=== PATIENT | male | born 1950 | race Caucasian/White ===

== ENCOUNTER 2024-04-28 11:02 | Inpatient (IN) | payer OTHER, SELFPAY ==
[2024-04-25 09:48] VITALS: BMI 34.9
[2024-04-28] VITALS (12 sets, daily range): BP systolic 133–170; BP diastolic 84–101; PULSE 72–115; RESP 12–20; TEMP 36.1–37.1; O2SAT 86–96; BMI 35.6
[2024-04-28] MEDS: ACETAMINOPHEN 325 MG TABLET 975 MG PO (12:11)
[2024-04-28] MEDS: LACTATED RINGERS 1,000 ML 42 ML IV (12:13)
--- NOTE | 2024-04-28 13:06 | PM.PREOP ---
Pre-operative Note Interval Note History & Physical reviewed/Exam performed by Physician: Yes Changes to H&P: No
[2024-04-28] MEDS: CEFAZOLIN 2 GM/100 ML PREMIX 100 ML IV ×2 (13:41→20:49)
[2024-04-28] MEDS: BUPIVACAINE 0.25% (PF) 60 ML, EPINEPHrine 0.15 MG INJ (13:54)
--- NOTE | 2024-04-28 14:02 | SUR.OPER ---
Prone on spine table, head in foam head support, padded chest and pelvic supports, gel pad at knees, lower legs supported by pillows; nipples, genitalia and toes free of pressure, arms secured on foam padded arm boards at <90 degrees abduction. Tape over blanket at thigh secured to table.
--- NOTE | 2024-04-28 15:58 | DI.RAD.S_ITS ---
PROCEDURE: XR LUMBAR SPINE 2-3V INDICATIONS: L4-5 TLIF TECHNIQUE: 3 views of the lumbar spine were acquired. COMPARISON: None. Findings and impression: Intraoperative images were obtained for L4-L5 posterior fusion hardware placement with interbody spacer. Please see operative note for full details. Dictated by: Robin Zaman M.D. on 04/28/2024 at 16:28 Approved by: Robin Zaman M.D. on 04/28/2024 at 16:28
--- NOTE | 2024-04-28 16:05 | P.OP_ITS ---
Operative Date/Time/Diagnoses Date of procedure: 04/28/24 Time of procedure: 13:00 Pre-op diagnosis: 1. 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 Lumbar spondylosis with radiculopathy Post-op diagnosis: same Procedure & Clinicians Procedure: 1. L4-5 Postero-lateral and posterior interbody fusion 2. L4-5 interbody cage placement. 3. L4-5 decompressive laminectomy with bilateral facetecomies 4. L4-5 Posterior non-segmental instrumentation 5. L3-4 right hemilaminectomy 6. [place] of bone marrow from iliac crest 7. Utilization of microsurgical technique and operating microscope Same procedure as scheduled: Yes Indications: Patient has been having chronic back pain and worsening lumbar radiculopathy and symptoms of neurogenic claudication. Patient was found to have severe L3-4 L4-5 spinal stenosis both centrally and then in the neural foramen correlating with his symptoms. Patient failed multiple conservative management with worsening pain weakness and numbness in his lower extremity. Patient has been having difficulty performing activity of daily living. After discussing risks benefits of treatment options, patient elected proceed with surgery. Surgeon: Shawn Dick Group Counselor: Shani Villegas Click Yes if Unassisted: No Anesthesia Type: General Operative Notes Closure Type: primary Specimen(s): none sent Prosthetic devices, grafts, tissues, transplants, or devices: Globus CREO MIS screws, RIse cage Estimated Blood Loss (mL): 100 Blood products transfused: none Procedure in detail: Patient was seen in the preoperative area. Risks and benefits of the surgery was discussed with the patient. Informed consent was obtained from the patient and placed in the chart. Surgical site was marked. Patient was taken to the operative room. General anesthesia was administered. Prophylactic antibiotic was given to the patient less than 30 min before the incision was made. Patient was placed into a prone position on the Julian table. Patient's back was then prepped and draped in the sterile fashion. Time-out was performed at this time. After patient was prepped and draped, patient's PSIS was palpated and marked bilaterally. Small 1 cm incision was made over the PSIS for placement of the reference probes. Two trocar was placed into the PSIS 1 on each side. The reference probe was attached to the trocar of the reference apparatus. At this time the C-arm imaging was used to confirm AP and lateral of L4-5 vertebrae and merged the C-arm imaging using the AetherPal robotic navigation system with the CT of the lumbar spine. After successful merging was completed and confirmed, skin marker was used to pravin out the skin incision using the AetherPal robotic arm. Bilateral incision was made at this time. Pre templated trajectory was used and guided using the AetherPal robotic navigation system for bilateral L4-5 pedicle screw placement. This was done by using the robotic arm to guide the high-speed bur to make a cortical entry point. Next a drill was placed also using the robotic arm and guided using the navigation system drilling partially through bilateral L4 and L5 pedicles. Next L4-5 pedicle screws it was pre templated and measured was placed onto the power national flatbed truck driver and inserted into the pedicles bilaterally. After all 4 screws were placed C-arm imaging was taken of both AP and lateral to confirm the placement. Excellent placement of the screws were confirmed and a matched precisely with the pre planned screw placement using the navigation system. MARs retractor was inserted using Prime Gridivation guidence. Globus MARS retractors was placed inside the incision and docked onto the L4 lamina. Using microsurgical technique and operating microscope, a L4 laminectomy and L4-5 facetectomy was performed using a Kerrison rongeur. Patient was found have severe central stenosis, lateral recess and neural foramen stenosis which was fully decompressed after the laminectomy facetectomy. The laminectomy and facetectomy was performed in order to decompress patient's cauda equina as well as the nerve roots exiting at the L4-5 level. More than 75% of the facets were removed during the process of decompression rendering L4-5 level grossly unstable and required a fusion procedure at the same time. The disc space at L4-5 was identified, and a total diskectomy was performed at L4-5 level. The endplates were decorticated using a rasp and shaver. The total diskectomy and decortication was performed at L4-5 level in order to to accomplish a L4-5 fusion. The local bone from the laminectomy and facetectomy was saved for local bone grafting. After the total diskectomy and decortication was completed, Viacel bone graft material was combined with local bone that was harvested earlier. At this time, a separate skin is incision was made over the iliac crest. A Jamshidi needle was inserted into the iliac crest through a separate skin incision. 5 cc of bone marrow aspiration was obtained through the separate skin incision using a Jamshidi needle from the iliac crest. The bone marrow aspiration was combined with local bone and the Viacel bone grafting material. The bone grafting material was placed into the L4-5 interbody space along with a expandable cage. The cage was expanded to its maximum height using the torque limiting screwdriver. The disc preparation as well as the cage insertion were also performed under navigation guidance. After the cage was placed, AP and lateral C-arm imaging was taken to confirm placement of the cage and excellent position was confirmed. GLobus MARs retractors were then redirected over the L3-4 interval from the right side, using microsurgical technique and operating microscope, a L3-4 hemilaminectomy was performed using Kerrison rongeur and drill. The facet was undercut using a Kerrison rongeur to further decompress the lateral recess. Globus MARS retractor was inserted and docked onto the L4-5 posterolateral gutter on the right side. Using the power drill, posterior-lateral decortication was performed at L5-S1 level until bleeding cortical bone was identified. The remaining bone grafting material was placed into the L4-5 posterior lateral gutter he order to accomplish posterolateral fusion at the L5- S1 level. At this time the tulips were attached to the L4-5 pedicle screw shanks. After measuring the length of the rods, they were inserted into the tulips of the pedicle screws and locked in place using locking caps and torque limiting screwdriver bilaterally. Total 4 caps and 2 titanium rods was used in order to complete the posterior instrumentation construct. After all the hardware was placed, and confirmed with AP and lateral C-arm imaging, the wound was then irrigated with sterile normal saline and packed with Ray-Antonia gauze for 3 min to accomplish hemostasis. After the gauze was removed the deep fascia was closed with #1 Vicryl suture. The subcutaneous layer was closed with 2-0 Vicryl. The skin was closed with skin mode. Patient tolerated the procedure well. There were no complications. Neuro monitoring system was used to monitor patient's neurologic status throughout entire procedure. There was no disturbance of the neural monitoring signals throughout the case. The Operation could not have been safely performed without compromising the technical result or length of the procedure, without the assistance of a skilled surgical services manager. The surgical services manager was medically necessary for proper positioning, retraction and manipulation of instruments, proper exposure, surgical preparation, and manipulation of tissue. Complications: none Post-operative Condition: stable Disposition: PACU Plan for aftercare: Admit to inpatient hospital
[2024-04-28] MEDS: LACTATED RINGERS 1,000 ML 125 ML IV (17:45)
[2024-04-28] MEDS: ACETAMINOPHEN 325 MG TABLET 650 MG PO (17:45)
[2024-04-28] MEDS: OXYCODONE IR 10 MG TABLET PO ×2 (17:45→22:19)
--- NOTE | 2024-04-28 18:24 | PC.NURSE ---
Patient is alert and oriented x4, his dressing is cdi to lower back. Given 1 oxycodone with some tylenol 650mg, which has been helpful for his discomfort. LR at 125 infusing and patient is eating his dinner without any nausea.
[2024-04-28] MEDS: ATORVASTATIN 20 MG TABLET 40 MG PO (20:49)
[2024-04-28] MEDS: GABAPENTIN 300 MG CAPSULE PO (20:49)
[2024-04-28] MEDS: DOCUSATE 100 MG CAPSULE PO (20:49)
[2024-04-28] MEDS: methocarbamoL 500 MG TABLET PO (20:49)
[2024-04-28] MEDS: SENNOSIDES 8.6 MG TABLET 17.2 MG PO (20:49)
[2024-04-29] VITALS (8 sets, daily range): BP systolic 115–140; BP diastolic 72–87; PULSE 90–110; RESP 18–20; TEMP 36.4–37.9; O2SAT 89–96
[2024-04-29] MEDS: OXYCODONE IR 10 MG TABLET PO ×4 (02:33→19:25)
[2024-04-29] MEDS: LACTATED RINGERS 1,000 ML 125 ML IV (02:34)
[2024-04-29] MEDS: ACETAMINOPHEN 325 MG TABLET 650 MG PO ×4 (02:34→20:14)
[2024-04-29] MEDS: CEFAZOLIN 2 GM/100 ML PREMIX 100 ML IV (04:20)
[2024-04-29] MEDS: TRIAMTERENE/HCTZ 37.5/25 CAPSULE 0.5 CAP PO (08:39)
[2024-04-29] MEDS: methocarbamoL 500 MG TABLET PO ×3 (08:40→20:17)
[2024-04-29] MEDS: DOCUSATE 100 MG CAPSULE PO ×2 (08:40→20:17)
[2024-04-29] MEDS: GABAPENTIN 300 MG CAPSULE PO ×3 (08:40→20:17)
[2024-04-29] MEDS: lisinopriL 10 MG TABLET PO (08:40)
[2024-04-29] MEDS: MAGNESIUM HYDROXIDE 30 ML UDC PO (08:41)
[2024-04-29] MEDS: polyethylene glycoL 3350 17 GM POWD.PACK PO (08:41)
[2024-04-29] MEDS: CITALOPRAM 10 MG TABLET 20 MG PO (08:41)
[2024-04-29] MEDS: HYDROMORPHONE 1 MG INJ 0.5 MG IV ×2 (09:05→15:29)
--- NOTE | 2024-04-29 09:05 | PT.IIE ---
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) S/P total right hip arthroplasty (06/2004) Medical History (Last Updated 04/25/24 @ 10:25 by Megan Garcia, RN) Adopted Depression Difficult intubation HLD (hyperlipidemia) HTN (hypertension) Prostate cancer Thyroid disease Physical Therapy Inpatient Evaluation/Re-Eval M1 PT/OT-IP Prior Functional Status Start: 04/29/24 11:32 Freq: NEEDED Status: Active Protocol: Document 04/29/24 09:05 AB (Rec: 04/29/24 11:50 AB [id number]) Medical Review Prior Functional Status Medical History Reviewed Yes Communication agreeable to do PT Mobility and Gait pt stated that he was independent with all mobilities and ambulation without AD Social History Household Members none Living Arrangements House Number of Floors (Floors) Two Floors Number of Stairs To Enter/Railing? pt plans to go to his daughter 's house upon d/c: info provided regarding daughter's house: pt will stay on main level of the house no steps to enter Home Environment Standard Height Toilet,Walk in Shower Home Equipment Front Wheel Walker M2 PT-IP Current Condition Start: 04/29/24 11:32 Freq: NEEDED Status: Active Protocol: Document 04/29/24 09:05 AB (Rec: 04/29/24 11:50 AB [id number]) Physical Therapy Current Condition Current Condition Evaluation Date 04/29/24 Treatment Diagnosis s/p L4-5 TLIF; difficulty in walking Onset Date 04/28/24 M3 PT-IP Subjective Start: 04/29/24 11:32 Freq: NEEDED Status: Active Protocol: Document 04/29/24 09:05 AB (Rec: 04/29/24 11:50 AB [id number]) Subjective Physical Therapy Visit Type Type Initial Evaluation Visit Start Time 09:05 Visit Stop Time 09:55 Number of MANAGER UNIX Visits 0 Physical Therapy Visit Comments Patient Comments agreeable to do PT Therapy Pain Assessment Pain When Pain Assessed At Rest Pain Present Pain Present Pain Reported Location back Intensity 8 Scale Used Numeric (0 - 10) Pain Behaviors Calling Out,Facial Grimacing, Guarding,Wincing Pain Management Techniques Apply Cold,Distraction, Modification of Treatment,Re- positioning,Timing of Activity with Medications M4 PT-IP Mobility and Gait Start: 04/29/24 11:32 Freq: NEEDED Status: Active Protocol: Document 04/29/24 09:05 AB (Rec: 04/29/24 11:50 AB [id number]) PT-Bed Mobility Assessment Rolling Type of Rolling Log Rolling Level of Assist Maximal Assistance Supine to Sit Supine to Sit Maximum Assistance,Bedrails Sit to Supine Sit to Supine Maximum Assistance PT-Transfer Assessment Sit to and From Stand Sit to and from Stand Maximum Assistance,1 Person Assistance,2 Person Assistance ,Use of Upper Extremities Equipment Transfer Assistive Device Front Wheeled Walker Orthotic/Prosthetic Devices or Brace: No Transfers Transfer Destination Bed,Chair Transfer Technique Stand Step Pivot Transfer Ability Level of Assist Maximum Assistance,1 Person Assistance,2 Person Assistance ,Use of Upper Extremities Comments Mobility Comments pt sitting on the chair. c/o increase back pain. pt just got up with nurse. agreed to do PT. obtained PLOF and home set up from pt. pt with memory issues. educated pt regarding back precautions and log roll bed mobility. post- op folder provided and reviewed contents. pt completed sit to stand x 2 attempts before able to stand upright max A x 1-2 and max cues. cued on techniques. attempted to ambulate but pt only able to take 3 steps using FWW max A x 1-2 and max cues. chair follow. c/o increase back pain. unsteady gait with (+) slight knee buckling on last step. pt sat back on the chair. positioned pt close to bed. completed sit to stand max a x 1-2 and max cues and step transfer to EOB max A x 1-2 and max cues. completed log roll bed mobility sit<>supine max A and max cues. pt needing increase rest breaks in between tasks. pt sat on EOB. completed sit to stand max A x 1-2 on EOB and step transfer back to chair using FWW max A x 1-2 and max cues. positioned pt on the chair. call light and table placed within reach. daughter arrived towards the end of PT session. informed pt and daughter regarding SNF rehab at this time. pt refusing but daughter more open and also agreed to do caregiver training. Gait Assessment Gait Gait Assistance Required: Maximum Assistance,1 Person Assist,2 Person Assist Distance (Feet) 2 Able to Maintain Weight Bearing Status Yes During Gait Assistive Devices Assistive Device Gait Belt,Front Wheeled Walker Orthotic/Prosthetic Devices or Brace: No Gait Deviations General Gait Pattern Decreased Stride Length, Decreased Feet Clearance,Step- to Gait Factors Limiting Gait Function Factors Limiting Gait Function Decreased Activity Tolerance, Decreased Strength,Difficulty Following Directions,Limited Range of Motion,Pain,Poor Balance,Poor Safety Awareness PT-Balance Assessment Sitting Balance and Reactions Static Sitting Balance Ability Good Dynamic Sitting Balance Ability Fair Standing Balance and Reactions Static Standing Balance Ability Poor Dynamic Standing Balance Ability Poor Device Used FWW M5 PT-IP Objective Assessments Start: 04/29/24 11:32 Freq: NEEDED Status: Active Protocol: Document 04/29/24 09:05 AB (Rec: 04/29/24 11:50 AB [id number]) Orientation Orientation/Cognition Level of Alertness Confusional State Orientation Name,Situation Language Function Ability Hard of Hearing Safety Awareness Decreased Safety Awareness Memory Description Short Term Impaired Gross Range of Motion Lower Extremity ROM Assessment Within Functional Limits Strength Lower Extremity Strength Assessment Bilaterally Impaired Hip 3+/5 Knee 4-/5 Muscle Tone Muscle Tone WNL Yes M6 PT-IP Treatment Start: 04/29/24 11:32 Freq: NEEDED Status: Active Protocol: Document 04/29/24 09:05 AB (Rec: 04/29/24 11:50 AB [id number]) Physical Therapy Treatment Education Education Provided Precautions,Weight Bearing Status,Post-Op Packet,Safety M7 PT-IP Assessment and Plan Start: 04/29/24 11:32 Freq: NEEDED Status: Active Protocol: Document 04/29/24 09:05 AB (Rec: 04/29/24 11:50 AB [id number]) PT Summary Assessment and Plan Potential Rehabilitation Potential Fair Status of Condition at Evaluation Evolving Summary Impairments Pain,ROM,Strength,Balance, Coordination,Sensation,Tone, Cognition,Bed Mobility, Transfers,Gait,Activity Tolerance Assessment Summary pt is a 73 y/o M s/p L4-5 TLIF POD 1. pt has back precautions. pt needing max A x 1-2 for all mobilities and unable to ambulate much today and only was able to take ~ 3 steps using FWW max A x 1-2 and max cues. pt with c/o increase back pain affecting current level of function. will continue to assess progress but at this time, pt will need 24/7 assist and will benefit from SNF rehab. Goals Bed Mobility Goal Minimal Assistance Transfer Goal Minimal Assistance,Front Wheeled Walker Gait Goal Minimal Assistance,Front Wheel Walker Gait Distance 100 Other Goals improve bed mobility, transfers, ambulation using FWW 150 ft SBA Days to Meet Goals 10 Frequency of Treatment Frequency Of Treatment Twice a Day Treatment Plan Physical Therapy Treatment Plan Bed Mobility Training,Transfer Training,Gait Training, Therapeutic Exercise,Balance Retraining,Post Op Education, Discharge Planning,Hot or Cold Pack,Neuromuscular Re-ed, Coordination Retraining,Manual Therapy Precautions Lumbar Precautions Log Roll,No Twisting,Limit Bending,Lifting Restriction of 10 lbs,Gait Belt above Incisional Area Recommendations To Nursing Amount of Assist Needed 2 Person Assist Discharge Recommendations PT Discharge Recommendations SNF Rehab Transportation Needs at Discharge Private Vehicle,Wheelchair/ Cabulance
--- NOTE | 2024-04-29 10:30 | OT.IP.EVAL ---
Addendum entered and electronically signed by Leandra Calderon OT 04/29/24 13:20: Pending progress, pt hopeful to go home, however may need skilled rehab. 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) S/P total right hip arthroplasty (06/2004) Occupational Therapy Inpatient Evaluation/Re-Eval M2 OT-IP Current Condition Start: 04/29/24 10:53 Freq: Status: Active Protocol: Document 04/29/24 11:15 [facility] (Rec: 04/29/24 11:35 [facility] [id number]) Occupational Therapy Current Condition Current Condition Evaluation Date 04/29/24 Treatment Diagnosis S/P L4-5 TLIF, L3-4 right hemilaminectomy Diagnosis Onset Date 04/28/24 Post Operative Precautions Lumbar Precautions Log Roll,No Twisting,Limit Bending,Lifting Restriction of 10 lbs,Gait Belt above Incisional Area M3 OT- IP Subjective and Pain Start: 04/29/24 10:53 Freq: Status: Active Protocol: Document 04/29/24 11:15 [facility] (Rec: 04/29/24 11:35 [facility] [id number]) OT- Subjective Occupational Therapy Visit Type Type Initial Evaluation Visit Start Time 10:00 Visit Stop Time 10:30 Occupational Therapy Visit Comments Patient Comments Pt agreed to get up and his daughter present in the room during OT eval. Patient/Caregiver Goals TO go home. OT Pain Assessment Pain When Pain Assessed At Rest Pain Present Pain Present Pain Reported Location back Intensity 5 Scale Used Numeric (0 - 10) M4 OT- IP ADL's Start: 04/29/24 10:53 Freq: Status: Active Protocol: Document 04/29/24 11:15 [facility] (Rec: 04/29/24 11:35 [facility] [id number]) OT BFB-Bsez-Fepvbuo General Evaluation Self-Feeding Ability Independent OT ADL-Grooming General Evaluation Grooming Ability Independent Areas Needing Assistance Retrieving/Set-up of Grooming Items Comments OT Grooming Comments Able to do while seated. OT ADL-Oral Care General Eval Oral Care Ability Independent Comments Oral Care Comments Pt able to do while seated. Educated if standing, best to hinge at his hips or spit into a cup. OT ADL-Dressing General Eval Lower Body Dressing Ability Maximum Assistance Areas Needing Assistance Socks Comments OT Dressing Comments Pt's daughter states to use slip on shoes or that she will just assist him. OT ADL-Toileting Comments OT Toileting Comments Not performed. Suggested pt use a BSC to put over the toilet or next to the recliner to increase safety and ease to come to stand. IN addition suggested use of urinal at night. At this time, pt will not be able to wipe and will need assist. Also able to showed them option of toilet paper aid when pt is moving better or to get a bidet. OT ADL-Bathing Comments OT Bathing Comments Pt's daughter state to get a shower chair. Spoke of care of the dressing for showering needs. M5 OT- IP IADL's Start: 04/29/24 10:53 Freq: Status: Active Protocol: Document 04/29/24 11:15 [facility] (Rec: 04/29/24 11:35 [facility] [id number]) OT-Instrumental Activities of Daily Living Deficits IADL Deficits Identified Deficits Home Safety Awareness Awareness of Need for Assistance at Home Good Awareness Ability to Problem Solve Emergency Able to Problem Solve Situations Home Safety Comments Pt's daughter to assist for all needs, especially as pt is a bit groggy. Medication Management Medication Management Caregiver Administers Money Management Money Management Caregiver Provides Assistance Meal Preparation Meal Preparation Caregiver Provides Assist Link Trainer Maintenance Man Link Trainer Maintenance Man Caregiver Provides Assist M6 OT- IP Functional Cognition Start: 04/29/24 10:53 Freq: Status: Active Protocol: Document 04/29/24 11:15 [facility] (Rec: 04/29/24 11:35 [facility] [id number]) Cognitive Factors Limiting Selfcare Function Cognitive Ability Level of Alertness Drowsy Patient Orientation Name,Place,Situation Attention Span Ability Capable of Focused Attention, Capable of Sustained Attention Safety Awareness Decreased Recall of Precautions Cognitive Comments Cognitive Assessment Comments Pt a bit groggy and needing lots of reassurance, cues for safety and educations of his back precautions. Pt's daughter has good awareness to be able to assist. OT- Vision and Hearing OT- Hearing Assessment OT- Hearing Assessment WFL OT- Vision Assessment Visual Acuity Glasses All The Time Visual Attentiveness WFL Occular Pursuits WFL M7 OT- IP Mobility and Balance Start: 04/29/24 10:53 Freq: Status: Active Protocol: Document 04/29/24 11:15 [facility] (Rec: 04/29/24 11:35 [facility] [id number]) OT- Bed Mobility Assessment Scooting Scooting to Edge of Bed Contact Guard Assistance OT-Transfer Assessment Sit to and From Stand Sit to and from Stand Moderate Assistance,Maximum Assistance,1 Person Assistance Comments Mobility Comments CGA and vc to scoot the the edge of the chair and MOD/MAX X 1 to stand . Pt is a little unsteady on his feet and had pt sit down. OT- Balance Assessment Sitting Balance and Reactions Static Sitting Balance Ability Good Dynamic Sitting Balance Ability Fair Standing Balance and Reactions Static Standing Balance Ability Poor M8 OT- IP Objective Assessments Start: 04/29/24 10:53 Freq: Status: Active Protocol: Document 04/29/24 11:15 [facility] (Rec: 04/29/24 11:35 [facility] [id number]) OT Gross Range of Motion Upper Extremity Range of Motion Assessment Within Functional Limits OT Strength Upper Extremity Strength Assessment Within Functional Limits M9 OT- IP Assessment and Plan Start: 04/29/24 10:53 Freq: Status: Active Protocol: Document 04/29/24 11:15 [facility] (Rec: 04/29/24 11:35 [facility] [id number]) OT Summary Assessment and Plan Potential Rehabilitation Potential Good Analytic Complexity at Evaluation Low Summary OT Impairments Pain,Strength,Balance, Functional Mobility,Grooming, Dressing,Toileting,Bathing, Toilet Transfers,Shower Transfers,Activity Tolerance Progress Towards Goals Slow Progress due to Pain,Slow Progress due to Medical Issues,Slow Progress due to Activity Tolerance Assessment Summary Pt low complexity and main barriers are pt is bit groggy, has pain, and needing MOD/MAX X1 to stand at this time. Pt's daughter to take him home when medically stable and has experience as a nursing aid. Pt will benefit from a shower chair and BSC. Goals Self-Feeding Goal Independent Grooming Goal Independent Dressing Goal Minimal Assistance Toileting Goal Minimal Assistance Bathing Goal Minimal Assistance Toilet Transfer Goal Standby Assistance Shower Transfer Goal Contact Guard Assistance Days to Meet Goals 10 Frequency of Treatment Other frequency 5x/week Treatment Plan OT Treatment Plan ADL Training,Functional Mobility,Patient/Family Education,Discharge Planning Other Treatment Recommendations and Next standing ADL's Treatment Focus Discharge Recommendations OT Discharge Recommendations Home with / Assist Available Home Equipment Needs BSC, shower chair Transportation Needs at Discharge Private Vehicle
--- NOTE | 2024-04-29 13:00 | CM.DANOTE ---
Initial DCP Assessment Visit Note Reviewed EMR and team rounds for status updates. Met with pt/dtr at bedside to introduce self and role, pt was found to be alert/oriented, and able to discuss his concerns/needs at d/c. His plan was to stay with his dtr for a few weeks post d/c, however he struggled with working with PT, and therapies are not recommending SNF rehab at d/c. Will plan to discuss pt's facility preference with him/dtr tomorrow am. Pt does live independently at baseline in his own home in [place]. He states that he has all necessary DME at home for continued home recovery needs. Payor: [facility] Attending: Dr. Dick Pt is a 73 year-old M post-op day 1 from a lumbar surgery with Dr. Dick. Pt had a recent lumbar steroid injection on , however it had very little impact on relieving his pain. He's tried numerous conservative efforts at pain reduction with no lasting benefit, but has had worsening bilateral leg weakness, pain, and numbness. He does have a plan for OP Ortho f/u post-SNF rehab d/c. DCP will continue to monitor and assist with SNF placement and coordination needs. Discharge Planning/Care Management CM Discharge Assessment Start: 04/29/24 12:52 Freq: Status: Active Protocol: Document 04/29/24 12:52 [facility] (Rec: 04/29/24 13:00 [facility] [id number]) Discharge Planning Assessment Assigned Lube Worker MARIO Howe Advance Directives? Yes Advance Directives on File No History Provided By Patient,Family Member,Medical Record Expected Length of Stay 2 Has Patient been admitted in last 30 No days? Prior Living Arrangements House Comment will stay with dtr for week or 2 Household Members none Type of transporation used prior to Drives own vehicle admit Independent with ADL's No: modified independent Comment N/A Caregiver for Another No DME Already Rented / Owned FWW / Walker Patient/Family Preference Custodial Facility Discharge Plan Custodial Facility Transportation Arrangement Facility Referrals Initiated Custodial If patient plan is SNF: Has PASSR been No completed? Medicare Choice List Provided Yes Whiteboard Updated in Patient Room with Yes name and ext. # of Lube Worker Review Status In Process Please Provide Date Initial DC 04/29/24 Assessment Was Performed Pre-Anesthesia Assessment Start: 04/25/24 09:48 Freq: Status: Active Protocol: Document 04/25/24 09:48 [facility] (Rec: 04/25/24 10:25 [facility] [id number]) Pre-Anesthesia Assessment Patient Information Reviewed Via Phone Assessment Assessment Completed With Patient Diagnostic Results BMP/CMP,CBC,EKG Comment 04/10/24 Outside records. Primary Care Provider Mack Dhillon Medical Clearance Received Not Applicable Seen Specialist in Last 12 Months Yes Specialist Seen Orthopedist Primary Language Uzbek Preferred Language Uzbek Records Management Technician Required No Height 160.02 cm Weight 89.358 kg Body Mass Index (BMI) 34.9 Hearing Ability Normal Visual Assist Glasses Dentition Type Teeth, Natural Present Barriers to Learning None Hx Anesthesia Reactions No Hx Family Anesthesia Reaction Pt is adopted. Hx Blood Transfusions No Anesthesia Review Requested No Deli Slicer No alcohol intake current alcohol intake frequency a few times a week Smoking Status Former smoker Tobacco type cigars how long ago did patient quit smoking 2006 Substance Use Type marijuana Pain Present Pain Reported Comment back and bilat legs. Musculoskeletal Symptoms Abnormal Gait,Back Pain, Difficulty Walking,Radiating Pain into Limb History of Falling (Recent or History of Yes ) Comment Tipped over dog a few moths ago. Patient is completely paralyzed or No completely immobile Is patient on oxygen? No Does patient have GRIFFIN/SOB No Hx Sleep Apnea Yes: Mild case Currently Taking a Beta Teodora No Can You Climb a Flight of Stairs Without Yes SOB Hx Chest Pain No Hx SOB No Hx Syncope or Dizziness No Anti-Coagulant Therapy No Has a Teaching Associate No Cardiac Testing Yes: EKG 04/10/24. Hx Pacemaker/ICD No Pacemaker Rep Required? No Cardiac Clearance Received Not Applicable Dysphagia No Diabetes No Hx Drug Resistant Organism No Presence of External or Internal Medical Yes: bilat hips. Devices Have you had any close contact with No someone diagnosed with COVID-19? Are you experiencing any of these No symptoms symptoms? Lives With none Current Living Arrangements House Number of Stairs To Enter/Railing? Won't need to use stairs. Support System Child/Children Does the Patient Have Assistance After Yes Surgery Patient Discharge Plan Description Return Home Comment Advised 1 night LOS. Emergency Contact Name Annamaria rubio Emergency Contact Advance Directives? Yes: Living will. Power of Floor Steward/Stewardess Yes Power of Floor Steward/Stewardess Name Annamaria rubio Power of Floor Steward/Stewardess PAC Instructions Assistance for 24 hours post- op,Durable medical equipment, Medications to take/avoid,No ETOH/petroleum product on skin DOS,NPO,Post-op transportation,Pre-surgical wash,Sensory aids,Sturdy shoes /comfortable clothes,Do not bring valuables and remove jewelry
[2024-04-29] MEDS: OXYCODONE IR 5 MG TABLET PO (13:40)
--- NOTE | 2024-04-29 14:15 | PT.IPTN ---
Current Diagnoses Spondylolisthesis, lumbar region (04/28/24) Spinal stenosis, lumbar region with neurogenic claudication (04/28/24) Surgery Performed Operation Date: 04/28/24 12:15 Actual Procedures p L4-5 TLIF, L3-4 Hemilaminectomy-Robot - Shawn Dick MD Physical Therapy Treatment Note M2 PT-IP Current Condition Start: 04/29/24 11:32 Freq: NEEDED Status: Active Protocol: Document 04/29/24 09:05 AB (Rec: 04/29/24 11:50 AB [id number]) Physical Therapy Current Condition Current Condition Evaluation Date 04/29/24 Treatment Diagnosis s/p L4-5 TLIF; difficulty in walking Onset Date 04/28/24 M3 PT-IP Subjective Start: 04/29/24 11:32 Freq: NEEDED Status: Active Protocol: Document 04/29/24 14:15 AB (Rec: 04/29/24 16:30 AB [id number]) Subjective Physical Therapy Visit Type Type Treatment Note Visit Start Time 14:15 Visit Stop Time 14:45 Number of EXECUTIVE KITCHEN MANAGER Visits 0 Therapy Pain Assessment Pain When Pain Assessed At Rest Pain Present Pain Present Pain Reported Location back Intensity 5 Scale Used 7/10 with mobility M4 PT-IP Mobility and Gait Start: 04/29/24 11:32 Freq: NEEDED Status: Active Protocol: Document 04/29/24 14:15 AB (Rec: 04/29/24 16:30 AB [id number]) PT-Bed Mobility Assessment Rolling Type of Rolling Log Rolling Level of Assist Moderate Assistance,1 Person Assistance Supine to Sit Supine to Sit Moderate Assistance,1 Person Assistance Sit to Supine Sit to Supine Moderate Assistance PT-Transfer Assessment Sit to and From Stand Sit to and from Stand Minimal Assistance,1 Person Assistance,Use of Upper Extremities Equipment Transfer Assistive Device Gait Belt,Front Wheeled Walker Orthotic/Prosthetic Devices or Brace: No Transfers Transfer Destination Bed,Chair Transfer Technique ambulated Transfer Ability Level of Assist Minimal Assistance,1 Person Assistance,Use of Upper Extremities Comments Mobility Comments pt sitting on the chair. daughter in room. daughter stated that she worked as an NAC before. pt completed sit to stand from the chair min A and ambulated to EOB using FWW min A and cues. completed log roll bed mobility mod A and max cues. repeated x 2 sets. daughter stated that pt will be sleeping on a recliner for now. caregiver training conducted. daughter was able to put safety belt on pt and ambulated pt to the chair using FWW min A and cues. positioned pt on the chair. call light and table placed within reach. pt continues to c/o increase back pain but slightly better compared to this morning. daughter stated that she will feel more comfortable if pt stays for one more night. nurse aware. Gait Assessment Gait Gait Assistance Required: Minimum Assistance Distance (Feet) 12 Able to Maintain Weight Bearing Status Yes During Gait Assistive Devices Assistive Device Gait Belt,Front Wheeled Walker Orthotic/Prosthetic Devices or Brace: No Gait Deviations General Gait Pattern Decreased Stride Length, Decreased Feet Clearance Factors Limiting Gait Function Factors Limiting Gait Function Decreased Activity Tolerance, Decreased Strength,Difficulty Following Directions,Limited Range of Motion,Pain,Poor Balance,Poor Safety Awareness M5 PT-IP Objective Assessments Start: 04/29/24 11:32 Freq: NEEDED Status: Active Protocol: Document 04/29/24 09:05 AB (Rec: 04/29/24 11:50 AB [id number]) Orientation Orientation/Cognition Level of Alertness Confusional State Orientation Name,Situation Language Function Ability Hard of Hearing Safety Awareness Decreased Safety Awareness Memory Description Short Term Impaired Gross Range of Motion Lower Extremity ROM Assessment Within Functional Limits Strength Lower Extremity Strength Assessment Bilaterally Impaired Hip 3+/5 Knee 4-/5 Muscle Tone Muscle Tone WNL Yes M6 PT-IP Treatment Start: 04/29/24 11:32 Freq: NEEDED Status: Active Protocol: Document 04/29/24 14:15 AB (Rec: 04/29/24 16:30 AB [id number]) Physical Therapy Treatment Education Education Provided Precautions,Post-Op Packet, Safety M7 PT-IP Assessment and Plan Start: 04/29/24 11:32 Freq: NEEDED Status: Active Protocol: Document 04/29/24 14:15 AB (Rec: 04/29/24 16:30 AB [id number]) PT Summary Assessment and Plan Potential Rehabilitation Potential Fair Summary Impairments Pain,ROM,Strength,Balance, Coordination,Sensation,Tone, Cognition,Bed Mobility, Transfers,Gait,Activity Tolerance Progress Towards Goals Slow Progress due to Pain,Slow Progress due to Activity Tolerance Assessment Summary pt is progressing slowly with mobility and able to ambulate this afternoon using fWW min A but only a short distance. pt continues to c/o increase pain 7/10 with mobility and has decrease activity tolerance affecting mobility assistance. caregiver training conducted and daughter was able to assist pt . will continue to assess progress. Goals Bed Mobility Goal Minimal Assistance Transfer Goal Minimal Assistance,Front Wheeled Walker Gait Goal Minimal Assistance,Front Wheel Walker Gait Distance 100 Other Goals improve bed mobility, transfers, ambulation using FWW 150 ft SBA Days to Meet Goals 10 Frequency of Treatment Frequency Of Treatment Twice a Day Treatment Plan Physical Therapy Treatment Plan Bed Mobility Training,Transfer Training,Gait Training, Therapeutic Exercise,Balance Retraining,Post Op Education, Discharge Planning,Hot or Cold Pack,Neuromuscular Re-ed, Coordination Retraining,Manual Therapy Precautions Lumbar Precautions Log Roll,No Twisting,Limit Bending,Lifting Restriction of 10 lbs,Gait Belt above Incisional Area Recommendations To Nursing Amount of Assist Needed 1 Person Assist Discharge Recommendations PT Discharge Recommendations Home with 12/02 Assist Available,Home Health Transportation Needs at Discharge Private Vehicle,Wheelchair/ Cabulance
--- NOTE | 2024-04-29 14:42 | P.DS_ITS ---
History of Present Illness History of Present Illness Date Patient Seen: 04/29/24 Time Patient Seen: 12:00 Chief complaint: INPT Discharge Providers Provider Date of admission: 04/28/24 11:02 Consults: 04/28/24 17:24 Consult to Occupational Therapy Evaluate & Treat Comment: Physician Instructions: Evaluate and treat Consult to Physical Therapy Evaluate & Treat Comment: Physician Instructions: Evaluate and Treat Discharge provider: Roland Pope PA-C Exam Vital Signs (past 8 hours): - 04/29/24 08:40 Pulse Rate 101 H Blood Pressure 128/87 Fraction of Inspired Oxygen 28 SaO2/FiO2 Ratio 335 Oxygen Delivery Method Nasal Cannula Oxygen Flow Rate 1 PFSH Medical History (Updated 04/25/24 @ 10:25 by Megan Garcia, RN) Adopted Difficult intubation HLD (hyperlipidemia) Thyroid disease HTN (hypertension) Depression Prostate cancer Surgical History (Updated 04/25/24 @ 10:23 by Megan Garcia, RN) History of tonsillectomy H/O prostatectomy 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) S/P total right hip arthroplasty (06/2004) Social History household members: none Smoking Status: Former smoker alcohol intake: current Discharge Plan Discharge Plan Patient Disposition: Home Provider Discharge Comment: DC pending PT Discharge orders & Medications Prescriptions: New ondansetron 4 mg Tablet,Disintegrating 4 mg sublingual Q8HR PRN (Reason: Nausea) Qty: 10 1RF oxycodone 5 mg Tablet 5 mg PO Q4H PRN (Reason: Pain, Moderate (4-6)) Qty: 30 0RF Continued atorvastatin 40 mg Tablet 40 mg PO BEDTIME methocarbamol 500 mg Tablet 500 mg PO TID hydrocodone-acetaminophen 5-325 mg Tablet 1 tab PO Q6H PRN (Reason: Pain (Scale Score 4-6)) citalopram 20 mg Tablet 20 mg PO DAILY lisinopril 10 mg Tablet 10 mg PO DAILY gabapentin 300 mg Capsule 300 mg PO TID triamterene-hydrochlorothiazid 75-50 mg Tablet 0.5 tab PO DAILY Follow up/Referrals: Shawn Dick MD [Physician] - 05/13/24 10:30 am (Follow up w/ Lei Pope PA-C, at [facility] office.) Diet/Activity/Treatments Diet: Diet as Tolerated Activity: No deep bending or twisting at the waist. No lifting more than 10 pounds. Skin/Wound/Dressing Care Report to your healthcare provider any signs of infection, such as:: chills, fever, night sweats, unusual drainage and unusual redness Dressing: May shower; keep dressing as dry as possible. If dressing becomes wet or dirty, may remove and replace with clean, dry gauze. No bathing or otherwise soaking incisions. Do not apply any creams, lotions, or ointments to incisions. Visit Report/Discharge Packet Instructions: DI for Transforaminal Lumbar Interbody Fusion Stand Alone Forms: Patient Portal/API, Stroke Signs & Symptoms, Surgery Discharge Quality VTE Deep Vein Thrombosis/Pulmonary Embolism Present on Admission: No
--- NOTE | 2024-04-29 17:54 | PM.PNPO.1 ---
Subjective Subjective Interval history: Patient found sitting in his chair today. Says he is having pain difficulty getting pain controlled with oral medication. He had to have IV Dilaudid to get any pain relief. He is having difficulty working with physical therapy. Denies any new numbness or tingling down the lower extremities bilaterally. Exam Vital Signs (past 8 hours): Fraction of Inspired Oxygen 28 SaO2/FiO2 Ratio 335 Oxygen Delivery Method Nasal Cannula Oxygen Flow Rate 1 Narrative Exam Narrative: Patient appears to be in no acute distress. Dressing is clean dry and intact. Sensation intact lower extremities bilaterally to light sensation. EHL, PF, DF, Knee flexors and extensors are 5/5 bilaterally. 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 However he is not advanced far enough with physical therapy as able like. He continued to work with physical therapy to ambulate hopefully discharged home with daughter Multimodal pain control. Continue to ambulate with physical therapy. Quality VTE Deep Vein Thrombosis/Pulmonary Embolism Present on Admission: No
[2024-04-29] MEDS: SENNOSIDES 8.6 MG TABLET 17.2 MG PO (20:16)
[2024-04-29] MEDS: ATORVASTATIN 20 MG TABLET 40 MG PO (20:17)
[2024-04-30] MEDS: OXYCODONE IR 10 MG TABLET PO ×3 (02:46→10:48)
--- NOTE | 2024-04-30 07:07 | PM.DS.1 ---
History of Present Illness History of Present Illness Date Patient Seen: 04/30/24 Time Patient Seen: 07:07 Chief complaint: INPT Narrative: Operative Date/Time/Diagnoses Date of procedure: 04/28/24 Time of procedure: 13:00 Pre-op diagnosis: 1. 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 Lumbar spondylosis with radiculopathy Post-op diagnosis: same Procedure & Clinicians Procedure: 1. L4-5 Postero-lateral and posterior interbody fusion 2. L4-5 interbody cage placement. 3. L4-5 decompressive laminectomy with bilateral facetecomies 4. L4-5 Posterior non-segmental instrumentation 5. L3-4 right hemilaminectomy 6. Channing of bone marrow from iliac crest 7. Utilization of microsurgical technique and operating microscope Same procedure as scheduled: Yes Indications: Patient has been having chronic back pain and worsening lumbar radiculopathy and symptoms of neurogenic claudication. Patient was found to have severe L3-4 L4-5 spinal stenosis both centrally and then in the neural foramen correlating with his symptoms. Patient failed multiple conservative management with worsening pain weakness and numbness in his lower extremity. Patient has been having difficulty performing activity of daily living. After discussing risks benefits of treatment options, patient elected proceed with surgery. Surgeon: Shawn Dick Media Monitor: Shani Villegas Click Yes if Unassisted: No Anesthesia Type: General Operative Notes Closure Type: primary Specimen(s): none sent Prosthetic devices, grafts, tissues, transplants, or devices: Globus CREO MIS screws, RIse cage Estimated Blood Loss (mL): 100 Blood products transfused: none Discharge Providers Provider Date of admission: 04/28/24 11:02 Discharge Date: 04/30/24 Consults: 04/28/24 17:24 Consult to Occupational Therapy Evaluate & Treat Comment: Physician Instructions: Evaluate and treat Consult to Physical Therapy Evaluate & Treat Comment: Physician Instructions: Evaluate and Treat Discharge provider: Shani Villegas PA-C Summary Hospital Course Discharge Diagnosis: L3-4, L4-5 spinal stenosis with neurogenic claudication, Lumbar spondylosis with radiculopathy; s/p L4-5 TLIF and right L3-4 hemilaminectomy Hospital Course: Mr Clarke's hospital course was unremarkable. On the morning of POD# 2, he was feeling better and wanted to go home. He was eating and voiding without difficulty. He c/o low back pain as well as radiating leg pain and was started on an oral steroid taper, which he can continue at discharge. He was mildly febrile to 100.3 on POD# 1 but had no systemic complaints; no cough, no SOB. Exam Vital Signs (past 8 hours): Fraction of Inspired Oxygen 26 SaO2/FiO2 Ratio 357 Oxygen Delivery Method Nasal Cannula Oxygen Flow Rate 1.5 Narrative Exam Narrative: 5/5 strength in hip flexors, quadriceps, hamstrings, PF, DF, EHL bilaterally. Sensation to light touch intact throughout BLE, calves soft and compressible. Dressing placed intraoperatively is CDI. SCDs in place and functioning. 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 Multimodal pain control, will start steroid taper here and continue at home. He is on hydrocodone/APAP 5/325, about 2/day as prescribed by his PCP; he will be discharged with oxycodone to take on top of this for acute post-op pain. Mechanical VTE prophylaxis; SCDs while in hospital, walking at discharge. F/u in office as scheduled. Discharge Plan Discharge Plan Patient Disposition: Home Discharge orders & Medications Prescriptions: New ondansetron 4 mg Tablet,Disintegrating 4 mg sublingual Q8HR PRN (Reason: Nausea) Qty: 10 1RF oxycodone 5 mg Tablet 5 mg PO Q4H PRN (Reason: Pain, Moderate (4-6)) Qty: 30 0RF methylprednisolone 4 mg tablet 4 mg PO DAILY Qty: 15 0RF Rx Instructions: Take 5 tabs on 05/01; 4 tabs on 05/02; 3 tabs on 05/03; 2 tabs on 05/04; last tab on 05/05 Continued atorvastatin 40 mg Tablet 40 mg PO BEDTIME methocarbamol 500 mg Tablet 500 mg PO TID hydrocodone-acetaminophen 5-325 mg Tablet 1 tab PO Q6H PRN (Reason: Pain (Scale Score 4-6)) citalopram 20 mg Tablet 20 mg PO DAILY lisinopril 10 mg Tablet 10 mg PO DAILY gabapentin 300 mg Capsule 300 mg PO TID triamterene-hydrochlorothiazid 75-50 mg Tablet 0.5 tab PO DAILY Follow up/Referrals: Shawn Dick MD [Physician] - 05/13/24 10:30 am (Follow up w/ Lei Pope PA-C, at [facility].) Diet/Activity/Treatments Diet: Diet as Tolerated Activity: No deep bending or twisting at the waist. No lifting more than 10 pounds. Skin/Wound/Dressing Care Report to your healthcare provider any signs of infection, such as:: chills, fever, night sweats, unusual drainage and unusual redness Dressing: May shower; keep dressing as dry as possible. If dressing becomes wet or dirty, may remove and replace with clean, dry gauze. No bathing or otherwise soaking incisions. Do not apply any creams, lotions, or ointments to incisions. Visit Report/Discharge Packet Instructions: DI for Prescription Opioid Use, DI for Transforaminal Lumbar Interbody Fusion Stand Alone Forms: Patient Portal/API, Stroke Signs & Symptoms, Surgery Discharge Quality VTE Deep Vein Thrombosis/Pulmonary Embolism Present on Admission: No
[2024-04-30] MEDS: polyethylene glycoL 3350 17 GM POWD.PACK PO (07:39)
[2024-04-30] MEDS: ACETAMINOPHEN 325 MG TABLET 650 MG PO (07:39)
[2024-04-30 07:41] VITALS: O2SAT 95
[2024-04-30 08:00] VITALS: BP 124/87; PULSE 90; RESP 19; TEMP 37.2; O2SAT 93
[2024-04-30] MEDS: methylPREDNISolone 4 MG TABLET 24 MG PO (08:04)
--- NOTE | 2024-04-30 08:49 | PT.IPTN ---
Current Diagnoses Spondylolisthesis, lumbar region (04/28/24) Spinal stenosis, lumbar region with neurogenic claudication (04/28/24) Surgery Performed Operation Date: 04/28/24 12:15 Actual Procedures p L4-5 TLIF, L3-4 Hemilaminectomy-Robot - Shawn Dick MD Physical Therapy Treatment Note M2 PT-IP Current Condition Start: 04/29/24 11:32 Freq: NEEDED Status: Active Protocol: Document 04/29/24 09:05 AB (Rec: 04/29/24 11:50 AB [id number]) Physical Therapy Current Condition Current Condition Evaluation Date 04/29/24 Treatment Diagnosis s/p L4-5 TLIF; difficulty in walking Onset Date 04/28/24 M3 PT-IP Subjective Start: 04/29/24 11:32 Freq: NEEDED Status: Active Protocol: Document 04/30/24 09:11 TS (Rec: 04/30/24 09:26 TS [id number]) Subjective Physical Therapy Visit Type Type Treatment Note Visit Start Time 08:49 Visit Stop Time 09:12 Number of ACCORDION TUNER Visits 1 Physical Therapy Visit Comments Patient Comments Pt found resting in the chair, reports pain at rest, he is agreeable to PT. Therapy Pain Assessment Pain When Pain Assessed At Rest Pain Present Pain Present Pain Reported M4 PT-IP Mobility and Gait Start: 04/29/24 11:32 Freq: NEEDED Status: Active Protocol: Document 04/30/24 09:11 TS (Rec: 04/30/24 09:26 TS [id number]) PT-Transfer Assessment Sit to and From Stand Sit to and from Stand Minimal Assistance,1 Person Assistance,Use of Upper Extremities Equipment Transfer Assistive Device Gait Belt,Front Wheeled Walker Comments Mobility Comments STS with FWW Reggie for balance coming into standing. He ambulates ~100'SBA/CGA with a slow step to gait. Pt ambulates back to the room, was left in the chair, all needs met. Gait Assessment Gait Gait Assistance Required: Standby Assistance,Contact Guard Assist Distance (Feet) 100 Able to Maintain Weight Bearing Status Yes During Gait Assistive Devices Assistive Device Gait Belt,Front Wheeled Walker Orthotic/Prosthetic Devices or Brace: No Gait Deviations General Gait Pattern Decreased Stride Length, Decreased Feet Clearance Factors Limiting Gait Function Factors Limiting Gait Function Decreased Activity Tolerance, Decreased Strength,Difficulty Following Directions,Limited Range of Motion,Pain,Poor Balance,Poor Safety Awareness PT-Balance Assessment Sitting Balance and Reactions Static Sitting Balance Ability Good Dynamic Sitting Balance Ability Fair Standing Balance and Reactions Static Standing Balance Ability Fair Dynamic Standing Balance Ability Fair Device Used FWW M5 PT-IP Objective Assessments Start: 04/29/24 11:32 Freq: NEEDED Status: Active Protocol: Document 04/29/24 09:05 AB (Rec: 04/29/24 11:50 AB [id number]) Orientation Orientation/Cognition Level of Alertness Confusional State Orientation Name,Situation Language Function Ability Hard of Hearing Safety Awareness Decreased Safety Awareness Memory Description Short Term Impaired Gross Range of Motion Lower Extremity ROM Assessment Within Functional Limits Strength Lower Extremity Strength Assessment Bilaterally Impaired Hip 3+/5 Knee 4-/5 Muscle Tone Muscle Tone WNL Yes M6 PT-IP Treatment Start: 04/29/24 11:32 Freq: NEEDED Status: Active Protocol: Document 04/30/24 09:11 TS (Rec: 04/30/24 09:26 TS [id number]) Physical Therapy Treatment Education Education Provided Precautions,Post-Op Packet, Safety M7 PT-IP Assessment and Plan Start: 04/29/24 11:32 Freq: NEEDED Status: Active Protocol: Document 04/30/24 09:11 TS (Rec: 04/30/24 09:26 TS [id number]) PT Summary Assessment and Plan Potential Rehabilitation Potential Fair Summary Impairments Pain,ROM,Strength,Balance, Coordination,Sensation,Tone, Cognition,Bed Mobility, Transfers,Gait,Activity Tolerance Progress Towards Goals Progressing Toward Goals Assessment Summary Erlin is making some progress with his mobility. He requires Reggie for STS and SBA/CGA with ambulation. He progressed his ambulation to ~100. Pt is going to his daughter's house after hospital stay. Goals Bed Mobility Goal Minimal Assistance Transfer Goal Minimal Assistance,Front Wheeled Walker Gait Goal Minimal Assistance,Front Wheel Walker Gait Distance 100 Other Goals improve bed mobility, transfers, ambulation using FWW 150 ft SBA Days to Meet Goals 10 Frequency of Treatment Frequency Of Treatment Twice a Day Treatment Plan Physical Therapy Treatment Plan Bed Mobility Training,Transfer Training,Gait Training, Therapeutic Exercise,Balance Retraining,Post Op Education, Discharge Planning,Hot or Cold Pack,Neuromuscular Re-ed, Coordination Retraining,Manual Therapy Precautions Lumbar Precautions Log Roll,No Twisting,Limit Bending,Lifting Restriction of 10 lbs,Gait Belt above Incisional Area Recommendations To Nursing Amount of Assist Needed 1 Person Assist Discharge Recommendations PT Discharge Recommendations Home with / Assist Available,Home Health Transportation Needs at Discharge Private Vehicle
[2024-04-30] MEDS: TRIAMTERENE/HCTZ 37.5/25 CAPSULE 0.5 CAP PO (08:57)
[2024-04-30 08:59] VITALS: BP 124/87; PULSE 90
[2024-04-30] MEDS: methocarbamoL 500 MG TABLET PO (08:59)
[2024-04-30] MEDS: DOCUSATE 100 MG CAPSULE PO (08:59)
[2024-04-30] MEDS: lisinopriL 10 MG TABLET PO (08:59)
[2024-04-30] MEDS: CITALOPRAM 10 MG TABLET 20 MG PO (09:00)
[2024-04-30] MEDS: MAGNESIUM HYDROXIDE 30 ML UDC PO (09:01)
[2024-04-30] MEDS: GABAPENTIN 300 MG CAPSULE PO (09:01)
--- NOTE | 2024-04-30 09:42 | OT.IPNOTE ---
Pt moving much better today and able to touch base with pt's daughter who was able to get OT equipment needs. Pt to be discharged today.
--- NOTE | 2024-04-30 10:43 | CM.DPC ---
DCP Cont. Reviewed EMR and team rounds for status updates. Pt has been medically cleared for d/c home w/dtr. No further CM assistance or resource needs are indicated at this time.
== END 2024-04-30 11:56 | disposition home or self-care (01) | DRG 402 ==
PROVIDERS: Admitting Provider Orthopaedic Surgery Orthopaedic Surgery of the Spine; Referring Provider Orthopaedic Surgery Orthopaedic Surgery of the Spine; Visit Provider Orthopaedic Surgery Orthopaedic Surgery of the Spine
PROC: 0SG00AJ Fusion of Lumbar Vertebral Joint with Interbody Fusion Device, Posterior Approach, Anterior Column, Open Approach (ICD-10-PCS; principal; 2024-04-28 12:15)
DX: M48.062 Spinal stenosis, lumbar region with neurogenic claudication (principal); M43.16 Spondylolisthesis, lumbar region; M47.816 Spondylosis without myelopathy or radiculopathy, lumbar region; M54.16 Radiculopathy, lumbar region; E78.5 Hyperlipidemia, unspecified; F32.A Depression, unspecified; I10 Essential (primary) hypertension; Z87.891 Personal history of nicotine dependence
CPT/HCPCS: 72100; 76000; 94760; 94762; 97162; 97165; 97530; 97535; C1713; J0171; J0690; J1100; J1171; J2405; J2704; J3010